=== PATIENT | female | born 1960 | race Caucasian/White ===

== ENCOUNTER 2016-09-13 07:39 | Day surgery (SDC) | payer OTHER ==
[~2016-09-13 07:39] MED LIST: IV START KIT ONE; LACTATED RINGERS 1,000 ML ONE
[2016-09-13] MEDS ORDERED: LACTATED RINGERS 1,000 ML IV SCH (08:30)
[2016-09-13] MEDS ORDERED: PROPOFOL 20 ML IV ONE (08:36)
--- NOTE | 2016-09-15 11:32 | SURGPATH ---
[facility] [address] [place] [id number] Patient Name: PABLO SANTIAGO MR#: [id number] : 1960 Gender: F Specimen #: [id number] Collected: 09/13/2016 Received: 09/14/2016 Reported: 09/15/2016 Submitting Phys: PATRICIA PALAFOX Copy To Phys: [facility] Clinical History / Pre-Operative Diagnosis: HISTORY OF COLON POLYPS Specimen Source / Surgical Procedure Performed: COLON POLYP AT 60 CM Interpretation: COLON POLYP AT 60 CM, BIOPSY: - TUBULAR ADENOMA Electronically Signed Out Robbie Summers M.D. Gross Description: The specimen is received in a formalin filled container labeled with the patient's name and "colon polyp at 60 cm". Two pale-gilman biopsies are 0.2 cm. Totally embedded in one cassette. Kali Crowley PByron Microscopic Description: Microscopic performed. 1: 85185 D12.3
== END 2016-09-13 09:43 | disposition home or self-care (01) ==
LOC: SDC 07:39
PROVIDERS: ATTEND Family Medicine
PROC: 0DBE8ZZ Excision of Large Intestine, Via Natural or Artificial Opening Endoscopic (ICD-10-PCS; principal; 2016-09-13)
DX: D12.6 Benign neoplasm of colon, unspecified (principal); Z86.010 Personal history of colon polyps; Z80.0 Family history of malignant neoplasm of digestive organs; Z88.8 Allergy status to other drugs, medicaments and biological substances; Z79.899 Other long term (current) drug therapy